=== PATIENT | male | born 1955 | race Asian ===

== ENCOUNTER 2025-01-18 13:39 | Emergency (ER) | payer MEDICARE, OTHER ==
[~2025-01-18] VITALS: Ht 167.6 cm; Wt 73.6 kg
[2025-01-18] MEDS ORDERED: TRIA16.911 NASAL (13:47)
[2025-01-18] MEDS ORDERED: LOSA-381 PO (13:47)
[2025-01-18] MEDS ORDERED: [UNRECOGNIZED DRUG - CODE] PO (13:47)
[2025-01-18] MEDS ORDERED: AMLO-257 PO (13:47)
[2025-01-18] MEDS ORDERED: METF-1211 PO (13:47)
[2025-01-18] MEDS ORDERED: OMEP-148 PO (13:47)
[2025-01-18] MEDS ORDERED: CETI-450 PO (13:47)
[2025-01-18 13:51] VITALS: BP 115/70; PULSE 80; RESP 18; TEMP 98.5; O2SAT 95
[2025-01-18] MEDS ORDERED: AMOX-457 PO (16:30)
[2025-01-18] MEDS ORDERED: FLUT16SP NASAL (16:32)
== END 2025-01-18 16:53 | disposition home or self-care (01) ==
LOC: EMS 13:42
DX: H66.92 Otitis media, unspecified, left ear (principal); E11.9 Type 2 diabetes mellitus without complications; I10 Essential (primary) hypertension; E78.00 Pure hypercholesterolemia, unspecified; Z90.49 Acquired absence of other specified parts of digestive tract; Z79.899 Other long term (current) drug therapy
CPT/HCPCS: 99283; Z7502